=== PATIENT | female | born 1955 | race Caucasian/White ===

== ENCOUNTER 2019-02-24 16:11 | Emergency (ER) | payer MEDICARE, OTHER ==
[~2019-02-24] VITALS: Ht 170.2 cm; Wt 136.1 kg
--- OUTSIDE RECORDS SUMMARY | 2019-02-24 16:18 | XMS REPORT | Continuity of Care Document ---
Author Organization Unknown Address Unknown Phone Unavailable Allergies There is no data. Medications There is no data. Problems There is no data. Procedures There is no data. Results There is no data. Encounters ACCT No. Visit Date/Time Discharge Status Pt. Type Provider Facility Loc./Unit Complaint [id number] 02/20/2019 14:20:00 02/20/2019 23:59:59 [facility] Outpatient [facility]
--- NOTE | 2019-02-24 17:45 | Diagnostic Imaging Report ---
PATIENT HISTORY: Fall with right wrist pain. TECHNIQUE: Three views of the right wrist COMPARISON: None FINDINGS: No acute fracture or dislocation is seen in the right wrist. Alignment appears normal. There are advanced degenerative changes at the basal joints of the thumb. IMPRESSION: 1. No acute osseous abnormality is seen in the right wrist. 2. 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 Dictated by: Dictated on workstation # [id number]
[2019-02-24 18:00] LABS: INR 2.5 (0.8-1.4); PROTHROMBIN TIME PATIENT 28.2 SEC (12.2-14.7)
[2019-02-24 18:38] LABS: BASOPHILS % (AUTO) 1 % (0-10); EOSINOPHILS % (AUTO) 3 % (0-10); HEMATOCRIT 35 % (35-52); HEMOGLOBIN 10.9 G/DL (11.5-16.0); LYMPHOCYTES # (AUTO) 1.4 X 10^3 (1.0-4.0); LYMPHOCYTES % (AUTO) 14 % (12-44); MEAN CORPUSCULAR HEMOGLOBIN 30 PG (25-34); MEAN CORPUSCULAR HGB CONC 32 G/DL (32-36); MEAN CORPUSCULAR VOLUME 94 FL (80-99); MEAN PLATELET VOLUME 10.8 FL (7.4-10.4); MONOCYTES % (AUTO) 10 % (0-12); NEUTROPHILS # (AUTO) 6.8 X 10^3 (1.8-7.8); NEUTROPHILS % (AUTO) 72 % (42-75); PLATELET COUNT 258 10^3/uL (130-400); RED CELL DISTRIBUTION WIDTH 15.5 % (10.0-14.5); WHITE BLOOD COUNT 9.5 10^3/uL (4.3-11.0)
[2019-02-24 18:39] LABS: BASOPHILS # (AUTO) 0.1 10^3/uL (0.0-0.1); BUN/CREATININE RATIO 28; CARBON DIOXIDE 27 MMOL/L (21-32); CHLORIDE 97 MMOL/L (98-107); CREATININE SERUM 0.67 MG/DL (0.60-1.30); EOSINOPHILS # (AUTO) 0.3 10^3/uL (0.0-0.3); GFR ESTIMATED > 60; GLUCOSE 104 MG/DL (70-105); POTASSIUM 4.2 MMOL/L (3.6-5.0); SODIUM 138 MMOL/L (135-145)
[2019-02-24 18:40] LABS: ALANINE AMINOTRANSFERASE 29 U/L (0-55); ALBUMIN 3.8 GM/DL (3.2-4.5); ALKALINE PHOSPHATASE 60 U/L (40-136); BILIRUBIN,TOTAL 0.5 MG/DL (0.1-1.0); CALCIUM 9.4 MG/DL (8.5-10.1); TOTAL PROTEIN 6.6 GM/DL (6.4-8.2)
--- NOTE | 2019-02-24 18:52 | ED General ---
General Chief Complaint: General Problems/Pain Stated Complaint: RT SIDE OF BODY PAIN Nursing Triage Note: Patient c/o right leg and right arm pain. States that she tripped and fell over her luggage on Wednesday. Landing on her right knee and right arm. She was seen in urgent care on Wednesday and told that she had a fractured 4th toe on her right foot but no other fractures were seen. Her pain has not improved so she presented to urgent care and they sent her to ED for further evaluation. Nursing Sepsis Screen: No Definite Risk Source of Information: Patient Exam Limitations: No Limitations History of Present Illness Date Seen by Provider: Feb 24, 2019 Time Seen by Provider: 16:30 Initial Comments Patient c/o right leg and right arm pain. States that she tripped and fell over her luggage on Wednesday. Landing on her right knee and right arm. She was seen in urgent care on Wednesday and told that she had a fractured 4th toe on her right foot but no other fractures were seen. Her pain has not improved so she presented to urgent care and they sent her to ED for further evaluation. She presents shows she has increased swelling and pain of her right leg as well as ecchymosis and swelling. Her pain is primarily on the anterolateral aspect of the right lower extremity and her pain is not behind her knee or in her calf. Timing/Duration: 4-5 Days Severity: Moderate Modifying Factors: improves with Immobilization Associated Systoms: Denies Symptoms Allergies and Home Medications Allergies Coded Allergies: alcohol (Verified Allergy, Unknown, 02/24/19) Chemical Mcdonald gum mastic (Verified Allergy, Unknown, 02/24/19) Chemical Mcdonald methyl salicylate (Verified Allergy, Unknown, 02/24/19) Chemical Mcdonald storax (Verified Allergy, Unknown, 02/24/19) Chemical Mcdonald acetaminophen (Verified Adverse Reaction, Unknown, Nausea, 02/24/19) Hallucinations meperidine (Verified Adverse Reaction, Unknown, Nausea, 02/24/19) Hallucinations morphine (Verified Adverse Reaction, Unknown, Nausea, 02/24/19) Hallucinations oxycodone (Verified Adverse Reaction, Unknown, Nausea, 02/24/19) Hallucinations propoxyphene (Verified Adverse Reaction, Unknown, Nausea, 02/24/19) Hallucinations Patient Home Medication List Home Medication List Reviewed: Yes Review of Systems Review of Systems Constitutional: no symptoms reported EENTM: No blurred vision, No double vision, No throat pain Respiratory: No short of breath, No stridor Cardiovascular: No edema, No palpitations, No syncope Gastrointestinal: No diarrhea, No nausea Genitourinary: No hematuria, No pain : No Skin: change in color (patient is ecchymosis and healing bruising over the anterior aspect of the right lower extremity involving the knee and lower leg. She has no tenderness behind the knee or in the calf) Psychiatric/Neurological: See HPI; Denies Paresthesia, Denies Seizure, Denies Tingling Hematologic/Lymphatic: See HPI; Denies Anemia, Denies Blood Clots, Denies Other Immunological/Allergic: denies see HPI, denies transplant Past Wswhnjs-Ulnsjx-Ztpuhd Hx Patient Social History Alcohol Use: Denies Use Recreational Drug Use: No Smoking Status: Never a Smoker 2nd Hand Smoke Exposure: No Recent Foreign Travel: No Contact w/Someone Who Travel: No Recent Infectious Disease Expo: No Recent Hopitalizations: No Physical Abuse: No Sexual Abuse: No Mistreated: No Fear: No Seasonal Allergies Seasonal Allergies: No Past Medical History Surgeries: Yes (Bilat Knee Replacement, Back x5, R shoulder replacement) Orthopedic Respiratory: No Cardiac: No Neurological: No Genitourinary: No Gastrointestinal: No Musculoskeletal: No Endocrine: No HEENT: No Cancer: No Psychosocial: No Integumentary: No Blood Disorders: No Physical Exam Vital Signs Vital Signs - First Documented 02/24/19 16:15 Temp 99.4 Pulse 63 Resp 20 B/P (MAP) 128/48 (74) Pulse Ox 97 O2 Delivery Room Air Capillary Refill : Less Than 3 Seconds Height, Weight, BMI Height: 5'7.00" Weight: 300lbs. oz. [phone]; BMI Method:Stated General Appearance: No Apparent Distress (shows morbid obesity), WD/WN Eyes: Bilateral Eye Normal Inspection, Bilateral Eye PERRL, Bilateral Eye EOMI HEENT: PERRL/EOMI, TMs Normal, Normal ENT Inspection, Pharynx Normal Neck: Full Range of Motion, Normal Inspection, Non Tender, Supple, Carotid Bruit Respiratory: Chest Non Tender, Lungs Clear, Normal Breath Sounds, No Accessory Muscle Use, No Respiratory Distress Cardiovascular: Regular Rate, Rhythm, No Edema, No Gallop, No JVD, No Murmur, Normal Peripheral Pulses Gastrointestinal: Normal Bowel Sounds, No Organomegaly, No Pulsatile Mass, Non Tender, Soft Back: Normal Inspection, No CVA Tenderness, No Vertebral Tenderness Extremity: Normal Capillary Refill, Normal Inspection, Normal Range of Motion, Non Tender, No Calf Tenderness, No Pedal Edema, Other (patient has tenderness over her right wrist without any anatomic snuffbox tenderness.) Neurologic/Psychiatric: Alert, Oriented x3, No Motor/Sensory Deficits, Normal Mood/Affect Skin: Normal Color, Warm/Dry, Ecchymosis Lymphatic: No Adenopathy Progress/Results/Core Measures Suspected Sepsis Recent Fever Within 48 Hours: No Infection Criteria Present: None New/Unexplained Altered Menta: No Sepsis Screen: No Definite Risk SIRS Temperature:99.4 Pulse: 63 Respiratory Rate: 20 Laboratory Tests 02/24/19 17:35: White Blood Count 9.5 Blood Pressure 128 /48 Mean: 74 Laboratory Tests 02/24/19 17:35: Creatinine 0.67, INR Comment 2.5H, Platelet Count 258, Total Bilirubin 0.5 Results/Orders Lab Results Laboratory Tests Test 02/24/19 17:35 Range/Units White Blood Count 9.5 4.3-11.0 10^3/uL Red Blood Count 3.67 L 4.35-5.85 10^6/uL Hemoglobin 10.9 L 11.5-16.0 G/DL Hematocrit 35 35-52 % Mean Corpuscular Volume 94 80-99 FL Mean Corpuscular Hemoglobin 30 25-34 PG Mean Corpuscular Hemoglobin Concent 32 32-36 G/DL Red Cell Distribution Width 15.5 H 10.0-14.5 % Platelet Count 258 130-400 10^3/uL Mean Platelet Volume 10.8 H 7.4-10.4 FL Neutrophils (%) (Auto) 72 42-75 % Lymphocytes (%) (Auto) 14 12-44 % Monocytes (%) (Auto) 10 0-12 % Eosinophils (%) (Auto) 3 0-10 % Basophils (%) (Auto) 1 0-10 % Neutrophils # (Auto) 6.8 1.8-7.8 X 10^3 Lymphocytes # (Auto) 1.4 1.0-4.0 X 10^3 Monocytes # (Auto) 1.0 0.0-1.0 X 10^3 Eosinophils # (Auto) 0.3 0.0-0.3 10^3/uL Basophils # (Auto) 0.1 0.0-0.1 10^3/uL Prothrombin Time 28.2 H 12.2-14.7 SEC INR Comment 2.5 H 0.8-1.4 Sodium Level 138 135-145 MMOL/L Potassium Level 4.2 3.6-5.0 MMOL/L Chloride Level 97 L 98-107 MMOL/L Carbon Dioxide Level 27 21-32 MMOL/L Anion Gap 14 5-14 MMOL/L Blood Urea Nitrogen 19 H 7-18 MG/DL Creatinine 0.67 0.60-1.30 MG/DL Estimat Glomerular Filtration Rate > 60 BUN/Creatinine Ratio 28 Glucose Level 104 70-105 MG/DL Calcium Level 9.4 8.5-10.1 MG/DL Corrected Calcium 9.6 8.5-10.1 MG/DL Total Bilirubin 0.5 0.1-1.0 MG/DL Aspartate Amino Transf (AST/SGOT) 28 5-34 U/L Alanine Aminotransferase (ALT/SGPT) 29 0-55 U/L Alkaline Phosphatase 60 40-136 U/L Total Protein 6.6 6.4-8.2 GM/DL Albumin 3.8 3.2-4.5 GM/DL My Orders Orders - MELINA COREA MD Protime With Inr (02/24/19 17:20) Wrist 3 View Right (02/24/19 17:20) Vital Signs/I&O 02/24/19 16:15 Temp 99.4 Pulse 63 Resp 20 B/P (MAP) 128/48 (74) Pulse Ox 97 O2 Delivery Room Air Capillary Refill : Less Than 3 Seconds Blood Pressure Mean: 74 Progress Note : Progress Note This patient fell and injured her right lower extremity on Wednesday she was apparently placed in an Ronald wrap strict keep it elevated but today she rechecked with urgent care and she continued to have swelling of her right lower extremity and they told her to come to the emergency room. Patient is on Coumadin and her INR has been therapeutic. Examination reveals she has swelling and ecchymosis of the right lower expiratory extremity especially the right knee in the right lower leg. There is no calf tenderness or tenderness behind the knee. Is explained to the patient that although I couldn't absolutely rule out a deep vein thrombosis this is highly unlikely since she has therapeutic INR and the location of the swelling and bruising is not in an area where he would normally see deep vein thrombosis. She was instructed to keep her leg elevated and keep ice on it little weightbearing and follow-up with her doctor or to a facility that has sound available and get an ultrasound of her right lower extremity Departure Impression Primary Impression: Contusion of right lower extremity Additional Impressions: Contusion of right leg Contusion of leg, right, multiple sites Contusion of right wrist Disposition: 01 HOME, SELF-CARE Condition: Unchanged Departure-Patient Inst. Referrals: NO,LOCAL PHYSICIAN (PCP) Primary Care Physician Patient Instructions: Contusion (DC) Add. Discharge Instructions: If the swelling becomes worse or moves to the posterior aspect of her leg please seek medical advice immediately and get an ultrasound of your right lower extremity. He should keep your right lower extremity elevated higher than your heart and limit weightbearing for the next several days. Any problems or questions return or call All discharge instructions reviewed with patient and/or family. Voiced understanding. MELINA COREA MD Feb 24, 2019 18:52
[2019-02-24] MEDS ORDERED: HYDROcodone/APAP 5 MG/325 MG (LORTAB) TAB PO ONE (19:15)
[2019-02-24 19:30] VITALS: BP 130/76
[2019-02-24 20:34] LABS: BILIRUBIN,URINE 1+ (NEGATIVE); CLARITY,URINE CLOUDY; COLOR,URINE DARK YELLOW; GLUCOSE, URINE (UA) NEGATIVE (NEGATIVE); LEUKOCYTE ESTERASE ,URINE 2+ (NEGATIVE); NITRITE,URINE NEGATIVE (NEGATIVE); PROTEIN,URINE NEGATIVE (NEGATIVE); RBC,URINE 0 /HPF; UROBILINOGEN,URINE 0.2 MG/DL (NORMAL)
[2019-02-24 20:35] LABS: BACTERIA,URINE FEW /HPF; CALCIUM OXALATE CRYSTALS,UR MODERATE /LPF; WBC,URINE 50-100 /HPF
[2019-02-24 20:37] LABS: KETONES,URINE TRACE (NEGATIVE)
== END 2019-02-24 19:30 | disposition home or self-care (01) ==
LOC: ER FS 16:14
DX: S80.11XA Contusion of right lower leg, initial encounter (principal); S60.211A Contusion of right wrist, initial encounter; S80.01XA Contusion of right knee, initial encounter; Z88.6 Allergy status to analgesic agent; Z88.5 Allergy status to narcotic agent; Z88.8 Allergy status to other drugs, medicaments and biological substances; Z96.653 Presence of artificial knee joint, bilateral; Z96.611 Presence of right artificial shoulder joint; Z87.81 Personal history of (healed) traumatic fracture; W18.09XA Striking against other object with subsequent fall, initial encounter
CPT/HCPCS: 36415; 73110; 80053; 81000; 85025; 85610; 87088